=== PATIENT | female | born 1965 | race Caucasian/White ===

== ENCOUNTER 2019-02-13 06:07 | Day surgery (SDC) | payer OTHER ==
[~2019-02-13] VITALS: Ht 142.2 cm; Wt 80.3 kg
[2019-02-13 07:14] VITALS: Ht 142.2 cm; Wt 80.3 kg
[2019-02-13] MEDS ORDERED: SIMV20TA2 PO (07:23)
[2019-02-13] MEDS ORDERED: ATEN-51 PO (07:23)
[2019-02-13] MEDS ORDERED: OMEP40CA6 PO (07:23)
[2019-02-13 07:35] VITALS: BP 138/96; PULSE 69; RESP 20
[2019-02-13] MEDS ORDERED: FENTAnyl 50 MCG/ML VIAL ONE (08:29)
[2019-02-13] MEDS ORDERED: MIDAZOLAM 1 MG/ML 2 ML INJ ONE ×2 (08:29)
[2019-02-13 08:40] VITALS: BP 144/85; PULSE 70; RESP 14
== END 2019-02-13 11:21 | disposition home or self-care (01) ==
LOC: GIL 06:07
PROVIDERS: ATTEND Internal Medicine Gastroenterology
DX: Z12.11 Encounter for screening for malignant neoplasm of colon (principal); D12.8 Benign neoplasm of rectum; K64.8 Other hemorrhoids; I10 Essential (primary) hypertension
CPT/HCPCS: 45380; 88305; J2250; J3010; Z7610